=== PATIENT | female | born 1995 | race Caucasian/White ===

== ENCOUNTER 2019-03-07 05:05 | Emergency (ER) | payer BC ==
[~2019-03-07] VITALS: Ht 170.2 cm; Wt 71.8 kg
[2019-03-07 06:19] VITALS: BP 127/87
== END 2019-03-07 07:12 | disposition home or self-care (01) ==
LOC: ED 06:30
DX: K29.20 Alcoholic gastritis without bleeding (principal); F10.10 Alcohol abuse, uncomplicated
CPT/HCPCS: 36415; 80053; 84703; 85025; 96361; 96374; 99283; J2405; J7030